=== PATIENT | female | born 1980 | race Two or more races ===

== ENCOUNTER 2017-07-02 07:40 | Emergency (ER) | payer MEDICARE ==
[~2017-07-02] VITALS: Ht 165.1 cm; Wt 85.3 kg
--- NOTE | 2017-07-02 08:00 | NUR ---
PT TO ED ROOM 03. CHEST PAIN, AND L ARM NUMBNESS SINCE 07 THIS MORNING. A/A/O. AMBULATORY. SIDE RAISL UP. HOB ELEVATED. CONNECTED TO MONITOR. RUC 2-LUMEN PICC POA. AWAITING EVALUATION BY ER PROVIDER.
--- NOTE | 2017-07-02 08:21 | NUR ---
BLOOD TESTS DRAWN AND SEND TO LAB.
[2017-07-02] MEDS ORDERED: Magnesium 1GM/D5W 100ML PREMIX 100 ML IV STA (08:24)
[2017-07-02 08:27] LABS: HEMATOCRIT 33 % (33-45); HEMOGLOBIN 11.1 g/dL (11.5-14.8); LYMPHOCYTES # (AUTO) 0.3 /CMM (0.8-4.8); LYMPHOCYTES % (AUTO) 3.8 % (20.0-44.0); MEAN CORPUSCULAR HEMOGLOBIN 28 PG (26.0-33.0); MEAN CORPUSCULAR HGB CONC 34 g/dl (31.0-36.0); MEAN CORPUSCULAR VOLUME 83 fL (82-100); MONOCYTES % (AUTO) 0.2 % (2.0-12.0); NEUTROPHILS # (AUTO) 8.5 /CMM (1.8-8.9); PLATELET COUNT (AUTO) 265 /CMM (150-450); RED BLOOD CELL COUNT(AUTO) 3.97 MIL/uL (4.0-5.2); WHITE BLOOD COUNT (AUTO) 8.8 K/uL (4.3-11.0)
[2017-07-02] MEDS ORDERED: ACETAMINOPHEN 325 MG TABLET PO ONE (08:30)
[2017-07-02] MEDS ORDERED: ACETAMINOPHEN ES 500 MG TABLET ONE (08:33)
[2017-07-02] MEDS ORDERED: Magnesium 1GM/D5W 100ML PREMIX 200 ML IV ONE (08:33)
[2017-07-02 08:45] LABS: ALANINE AMINOTRANSFERASE 15 U/L (12-78); ALBUMIN 3.7 g/dL (3.4-5.0); ALKALINE PHOSPHATASE 121 U/L (46-116); ASPARTATE AMINOTRANSFERASE 12 U/L (15-37); BILIRUBIN,DIRECT 0.1 mg/dL (0.0-0.2); BILIRUBIN,TOTAL 0.2 mg/dL (0.2-1.0); CALCIUM, SERUM 8.6 mg/dL (8.5-10.1); CARBON DIOXIDE 22 mmol/L (21-32); CHLORIDE 105 mmol/L (98-107); CREATININE 1.2 mg/dL (0.6-1.3); GLUCOSE 190 mg/dL (74-106); POTASSIUM 3.8 mmol/L (3.5-5.1); SODIUM SERUM 137 mmol/L (136-145); TOTAL PROTEIN, SERUM 6.6 g/dL (6.4-8.2); UREA NITROGEN, BLOOD 15 mg/dL (7-18)
[2017-07-02 08:46] LABS: TROPONIN I < 0.017 ng/mL (0.00-0.056)
--- NOTE | 2017-07-02 10:12 | NUR ---
Patient is resting comfortably in bed with eyes closed. Easily aroused. VSS
[2017-07-02 10:15] VITALS: BP 136/68
== END 2017-07-02 10:31 | disposition home or self-care (01) ==
LOC: ER 07:47
DX: R07.2 Precordial pain (principal); R22.0 Localized swelling, mass and lump, head; R94.31 Abnormal electrocardiogram [ECG] [EKG]; D64.9 Anemia, unspecified; I42.9 Cardiomyopathy, unspecified; M86.9 Osteomyelitis, unspecified; M32.9 Systemic lupus erythematosus, unspecified; Q21.1 Atrial septal defect; Z86.711 Personal history of pulmonary embolism; Z86.73 Personal history of transient ischemic attack (TIA), and cerebral infarction without residual deficits; Z88.6 Allergy status to analgesic agent; Z88.8 Allergy status to other drugs, medicaments and biological substances
CPT/HCPCS: 36415; 70450; 71045; 80048; 80076; 84484; 85025; 85730; 93005; 96365; 99285; A4606; J3475; Z7610